=== PATIENT | male | born 1970 | race Caucasian/White ===

== ENCOUNTER 2017-07-28 00:58 | Emergency (ER) | payer OTHER ==
[2017-07-28] MEDS ORDERED: Sodium Chloride 0.9% 1,000 ML IV ONE (01:07)
[2017-07-28] MEDS ORDERED: Diltiazem 25 MG/5 ML SDV IVPUSH ONE (01:07)
--- NOTE | 2017-07-28 01:09 | EDM.PDOC ---
ED HPI GENERAL MEDICAL PROBLEM - General Stated Complaint: RAPID HEART RATE Time Seen by Provider: 07/28/17 01:08 Source of Information: Reports: Patient - History of Present Illness INITIAL COMMENTS - FREE TEXT/NARRATIVE: HISTORY AND PHYSICAL: History of present illness: [Patient with atrial fibrillation and diabetes history presents with palpitations and tachycardia, he denies any chest pain shortness breath headache dizziness bowel or urine symptoms On arrival her rate is 145 did come down into the 120s but was in atrial fibrillation we did provide Cardizem 20 mg IV with a fluid bolus rate controlled 70s Patient was considered for admission and actually accepted by our hospitalist however patient has decided to sign out AGAINST MEDICAL ADVICE all risks and benefits discussed ] Review of systems: As per history of present illness and below otherwise all systems reviewed and negative. Past medical history: As per history of present illness and as reviewed below otherwise noncontributory. Surgical history: As per history of present illness and as reviewed below otherwise noncontributory. Social history: No reported history of drug or alcohol abuse. Family history: As per history of present illness and as reviewed below otherwise noncontributory. Physical exam: HEENT: Atraumatic, normocephalic, pupils reactive, negative for conjunctival pallor or scleral icterus, mucous membranes moist, throat clear, neck supple, nontender, trachea midline. Lungs: Clear to auscultation, breath sounds equal bilaterally, chest nontender. Heart: S1S2, regular, negative for clicks, rubs, or JVD. Abdomen: Soft, nondistended, nontender. Negative for masses or hepatosplenomegaly. Negative for costovertebral tenderness. Pelvis: Stable nontender. Genitourinary: Deferred. Rectal: Deferred. Extremities: Atraumatic, negative for cords or calf pain. Neurovascular unremarkable. Neuro: Awake, alert, oriented. Cranial nerves II through XII unremarkable. Cerebellum unremarkable. Motor and sensory unremarkable throughout. Exam nonfocal. Diagnostics: [CBC CMP UA INR troponin Chest 1 view EKG] Therapeutics: [1 L bolus Cardizem 20 mg IV push] Patient elects to sign out AGAINST MEDICAL ADVICE Impression: []Atrial fibrillation Renal insufficiency Definitive disposition and diagnosis as appropriate pending reevaluation and review of above. Chest Pain Score (Numeric/FACES): 2 - Related Data Allergies Allergy/AdvReac Type Severity Reaction Status Date / Time bromide salts Allergy Rash Verified 07/28/17 01:31 Home Meds: Home Meds Dapagliflozin Propanediol [Farxiga] 10 mg PO DAILY 07/28/17 [History] Lisinopril [Prinivil] 5 mg PO DAILY 07/28/17 [History] Metoprolol Tartrate 25 mg PO DAILY 07/28/17 [History] glyBURIDE [Glyburide] 5 mg PO BID 07/28/17 [History] metFORMIN HCl [Glucophage] 1,000 mg PO BID 07/28/17 [History] ED ROS GENERAL - Review of Systems Review Of Systems: ROS reveals no pertinent complaints other than HPI. ED EXAM, GENERAL - Physical Exam Exam: See Below Course - Vital Signs Last Recorded V/S: Last Vital Signs Temp 98 F 07/28/17 01:00 Pulse 145 H 07/28/17 01:00 Resp 16 07/28/17 01:00 BP 141/80 H 07/28/17 01:00 Pulse Ox 95 07/28/17 01:00 - Orders/Labs/Meds Orders: Active Orders 24 hr Category Date Time Status EKG 12 Lead [EKG Documentation Completion] [RC] STAT Care 07/28/17 01:54 Active EKG Documentation Completion [RC] STAT Care 07/28/17 01:07 Active Chest 1V Frontal [CR] Stat Exams 07/28/17 01:07 Taken UA W/MICROSCOPIC [URIN] Stat Lab 07/28/17 02:14 Ordered Labs: Laboratory Tests 07/28/17 07/28/17 07/28/17 Range/Units 01:13 01:13 01:13 WBC 11.68 H (4.0-11.0) K/uL RBC 4.99 (4.50-5.90) M/uL Hgb 15.7 (13.0-17.0) g/dL Hct 45.2 (38.0-50.0) % MCV 90.6 (80.0-98.0) fL MCH 31.5 (27.0-32.0) pg MCHC 34.7 (31.0-37.0) g/dL RDW Std Deviation 43.2 (28.0-62.0) fl RDW Coeff of Marilee 13 (11.0-15.0) % Plt Count 227 (150-400) K/uL MPV 10.00 (7.40-12.00) fL Neut % (Auto) 59.2 (48.0-80.0) % Lymph % (Auto) 29.5 (16.0-40.0) % Otero % (Auto) 6.8 (0.0-15.0) % Eos % (Auto) 4.2 (0.0-7.0) % Baso % (Auto) 0.3 (0.0-1.5) % Neut # (Auto) 6.9 H (1.4-5.7) K/uL Lymph # (Auto) 3.4 H (0.6-2.4) K/uL Otero # (Auto) 0.8 (0.0-0.8) K/uL Eos # (Auto) 0.5 (0.0-0.7) K/uL Baso # (Auto) 0.0 (0.0-0.1) K/uL Nucleated RBC % 0.0 /100WBC Nucleated RBCs # 0 K/uL INR 0.98 Sodium 137 (136-148) mmol/L Potassium 4.0 (3.5-5.1) mmol/L Chloride 102 (98-107) mmol/L Carbon Dioxide 22.0 (21.0-32.0) mmol/L BUN 34 H (7.0-18.0) mg/dL Creatinine 1.4 H (0.8-1.3) mg/dL Est Cr Clr Drug Dosing 70.97 mL/min Estimated GFR (MDRD) 54.8 ml/min Glucose 161 H (74-106) mg/dL Calcium 9.4 (8.5-10.1) mg/dL Total Bilirubin 0.4 (0.2-1.0) mg/dL AST 23 (15-37) IU/L ALT 45 (14-63) IU/L Alkaline Phosphatase 52 (46-116) U/L Total Protein 7.5 (6.4-8.2) g/dL Albumin 4.0 (3.4-5.0) g/dL Globulin 3.5 (2.0-3.5) g/dL Albumin/Globulin Ratio 1.1 L (1.3-2.8) Urine Color Urine Appearance Urine pH (5.0-8.0) Ur Specific Ennis (1.001-1.035) Urine Protein (NEGATIVE) mg/dL Urine Glucose (UA) (NEGATIVE) mg/dL Urine Ketones (NEGATIVE) mg/dL Urine Occult Blood (NEGATIVE) Urine Nitrite (NEGATIVE) Urine Bilirubin (NEGATIVE) Urine Urobilinogen (<2.0) EU/dL Ur Leukocyte Esterase (NEGATIVE) Urine RBC (0-2/HPF) Urine WBC (0-5/HPF) Ur Epithelial Cells (NONE-FEW) Urine Bacteria (NEGATIVE) 07/28/17 Range/Units 02:14 WBC (4.0-11.0) K/uL RBC (4.50-5.90) M/uL Hgb (13.0-17.0) g/dL Hct (38.0-50.0) % MCV (80.0-98.0) fL MCH (27.0-32.0) pg MCHC (31.0-37.0) g/dL RDW Std Deviation (28.0-62.0) fl RDW Coeff of Marilee (11.0-15.0) % Plt Count (150-400) K/uL MPV (7.40-12.00) fL Neut % (Auto) (48.0-80.0) % Lymph % (Auto) (16.0-40.0) % Otero % (Auto) (0.0-15.0) % Eos % (Auto) (0.0-7.0) % Baso % (Auto) (0.0-1.5) % Neut # (Auto) (1.4-5.7) K/uL Lymph # (Auto) (0.6-2.4) K/uL Otero # (Auto) (0.0-0.8) K/uL Eos # (Auto) (0.0-0.7) K/uL Baso # (Auto) (0.0-0.1) K/uL Nucleated RBC % /100WBC Nucleated RBCs # K/uL INR Sodium (136-148) mmol/L Potassium (3.5-5.1) mmol/L Chloride (98-107) mmol/L Carbon Dioxide (21.0-32.0) mmol/L BUN (7.0-18.0) mg/dL Creatinine (0.8-1.3) mg/dL Est Cr Clr Drug Dosing mL/min Estimated GFR (MDRD) ml/min Glucose (74-106) mg/dL Calcium (8.5-10.1) mg/dL Total Bilirubin (0.2-1.0) mg/dL AST (15-37) IU/L ALT (14-63) IU/L Alkaline Phosphatase (46-116) U/L Total Protein (6.4-8.2) g/dL Albumin (3.4-5.0) g/dL Globulin (2.0-3.5) g/dL Albumin/Globulin Ratio (1.3-2.8) Urine Color YELLOW Urine Appearance CLEAR Urine pH 5.5 (5.0-8.0) Ur Specific Ennis 1.025 (1.001-1.035) Urine Protein NEGATIVE (NEGATIVE) mg/dL Urine Glucose (UA) >=1000 (NEGATIVE) mg/dL Urine Ketones TRACE H (NEGATIVE) mg/dL Urine Occult Blood NEGATIVE (NEGATIVE) Urine Nitrite NEGATIVE (NEGATIVE) Urine Bilirubin NEGATIVE (NEGATIVE) Urine Urobilinogen 0.2 (<2.0) EU/dL Ur Leukocyte Esterase NEGATIVE (NEGATIVE) Urine RBC 0-2 (0-2/HPF) Urine WBC 0-1 (0-5/HPF) Ur Epithelial Cells RARE (NONE-FEW) Urine Bacteria FEW (NEGATIVE) Meds: Medications Discontinued Medications Generic Name Dose Route Start Last Admin Trade Name Freq PRN Reason Stop Dose Admin Diltiazem HCl 20 mg 07/28/17 01:07 07/28/17 01:20 Diltiazem IVPUSH 07/28/17 01:08 20 mg ONETIME ONE Administration Enoxaparin Sodium 120 mg 07/28/17 02:05 Lovenox SUBCUT 07/28/17 02:06 ONETIME ONE Sodium Chloride 1,000 mls @ 999 mls/hr 07/28/17 01:07 07/28/17 01:19 Normal Saline IV 07/28/17 02:07 999 mls/hr STAT ONE Administration Departure - Departure Time of Disposition: 02:42 Disposition: Against Medical Advice 07 Condition: Fair Clinical Impression: Atrial fibrillation - Discharge Information Referrals: PCP,None [Primary Care Provider] - Additional Instructions: The following information is given to patients seen in the emergency department who are being discharged to home. This information is to outline your options for follow-up care. We provide all patients seen in our emergency department with a follow-up referral. The need for follow-up, as well as the timing and circumstances, are variable depending upon the specifics of your emergency department visit. If you don't have a primary care physician on staff, we will provide you with a referral. We always advise you to contact your personal physician following an emergency department visit to inform them of the circumstance of the visit and for follow-up with them and/or the need for any referrals to a consulting specialist. The emergency department will also refer you to a specialist when appropriate. This referral assures that you have the opportunity for follow-up care with a specialist. All of these measure are taken in an effort to provide you with optimal care, which includes your follow-up. Under all circumstances we always encourage you to contact your private physician who remains a resource for coordinating your care. When calling for follow-up care, please make the office aware that this follow-up is from your recent emergency room visit. If for any reason you are refused follow-up, please contact the [facility] emergency department at and asked to speak to the emergency department charge nurse. - My Orders Last 24 Hours: My Active Orders 07/28/17 01:07 EKG Documentation Completion [RC] STAT Chest 1V Frontal [CR] Stat 07/28/17 01:54 EKG 12 Lead [EKG Documentation Completion] [RC] STAT 07/28/17 02:14 UA W/MICROSCOPIC [URIN] Stat - Assessment/Plan Last 24 Hours: My Active Orders 07/28/17 01:07 EKG Documentation Completion [RC] STAT Chest 1V Frontal [CR] Stat 07/28/17 01:54 EKG 12 Lead [EKG Documentation Completion] [RC] STAT 07/28/17 02:14 UA W/MICROSCOPIC [URIN] Stat
[2017-07-28] MEDS ORDERED: Enoxaparin 60 MG/0.6 ML Syringe SUBCUT ONE (02:05)
--- NOTE | 2017-07-29 13:42 | CR ---
EXAM DATE: 07/28/17 PATIENT'S AGE: 46 Patient: TIARA YEPEZ Facility: [place], [place] Site . Site : [id number] Study: XRay Chest [id number]/20/2018 1:38:58 AM Ordering Physician: Doctor Velázquez Final Report: INDICATION: Chest pain, shortness of breath. TECHNIQUE: Chest radiograph 1 view COMPARISON: None FINDINGS: Cardiovascular and mediastinum: The heart silhouette is normal in size and morphology. The mediastinum is normal in appearance. Lungs and pleural spaces: Both lungs are unremarkable in appearance. No sign of pleural effusion seen. No pneumothorax is identified. Bones and soft tissues: No significant findings. Lower cervical spine fusion hardware noted. IMPRESSION: 1. No acute cardiopulmonary disease is seen. Dictated by Frederick Salazar MD @ 07/28/2017 1:41:36 AM Dictated by: Frederick Salazar MD @ 07/28/2017 01:41:42 (Electronic Signature) Report Signed by Proxy. [facility]ANG[facility] HEALTH SYSTEMAmbreen
== END 2017-07-28 03:21 | disposition left against medical advice (07) ==
LOC: MW.ED 00:58
DX: I48.91 Unspecified atrial fibrillation (principal); E11.9 Type 2 diabetes mellitus without complications; Z79.899 Other long term (current) drug therapy; Z79.84 Long term (current) use of oral hypoglycemic drugs; Z91.018 Allergy to other foods
CPT/HCPCS: 36415; 71045; 80053; 81001; 85025; 85610; 93005; 96361; 96372; 96374; 99285; J1650; J3490; J7040; 99284